=== PATIENT | male | born 1985 | race Caucasian/White ===

== ENCOUNTER → 2020-07-14 14:14 | Outpatient (BNVA) | payer OTHER, SELFPAY | PROVIDERS: Family Provider Family Medicine; Referring Provider Dermatology; Visit Provider Dermatology | DX: L71.8 Other rosacea (principal); H10.829 Rosacea conjunctivitis, unspecified eye; L21.9 Seborrheic dermatitis, unspecified | CPT/HCPCS: 99203 ==

== ENCOUNTER → 2020-08-19 14:01 | Outpatient (BNVA) | payer OTHER, SELFPAY | PROVIDERS: Family Provider Family Medicine; PCP Family Medicine; Visit Provider Family Medicine | DX: Z11.59 Encounter for screening for other viral diseases (principal); Z20.828 Contact with and (suspected) exposure to other viral communicable diseases | CPT/HCPCS: 87635 ==

== ENCOUNTER → 2021-01-12 11:48 | Outpatient (BNVA) | payer OTHER, SELFPAY | PROVIDERS: Family Provider Family Medicine; PCP Family Medicine; Visit Provider Nurse Practitioner | DX: Z20.822 Contact with and (suspected) exposure to COVID-19 (principal); Z71.84 Encounter for health counseling related to travel | CPT/HCPCS: 87635 ==

== ENCOUNTER → 2022-05-29 14:06 | Outpatient (BNVA) | payer OTHER, SELFPAY | PROVIDERS: Family Provider Family Medicine; PCP Family Medicine; Visit Provider Internal Medicine Cardiovascular Disease | DX: Q87.40 Marfan syndrome, unspecified (principal) | CPT/HCPCS: 93306 ==